=== PATIENT | female | born 1945 | race Caucasian/White ===

== ENCOUNTER 2016-08-06 01:39 | Inpatient (IN) ==
[2016-08-06] MEDS ORDERED: LOVENOX 1 MG/KG SUBQ ONE (04:50)
[2016-08-06 05:26] LABS: BASO% 0.2 % (0.0-0.8); HEMATOCRIT 30.7 % (37.0-47.0); HEMOGLOBIN 9.7 g/dL (12.0-16.0); LYMPH# 0.38 X1000 (1.2-3.4); LYMPH% 5.9 % (20.5-51.1); MANUAL DIFF NEEDED? NO; MCH 30.7 PG (27-31); MCHC 31.6 g/dL (33-37); MCV 97.2 FL (81-99); MONO# 0.24 X1000 (0.11-0.59); MONO% 3.8 % (1.7-9.3); MPV 9.1 FL (7.4-10.4); NEUT% 90.1 % (42.2-75.2); PLT 480 X1000 (130-400); RBC 3.16 XMIL (4.2-5.4)
[2016-08-06 05:41] LABS: AGAP 12; ALBUMIN 3.1 g/dL (3.5-5.0); ALKALINE PHOSPHATASE 81 U/L (32-104); BUN 17 mg/dL (8-22); CALCIUM 8.4 mg/dL (8.8-10.2); CHLORIDE 103 mmol/L (98-107); COSMO 281; GOT 11 U/L (10-30); GPT 12 U/L (10-36); POTASSIUM 4.1 mmol/L (3.5-5.1); SODIUM 139 mmol/L (136-145); TCO2 24 mmol/L (25-35); TOTAL BILIRUBIN 0.43 mg/dL (0.20-1.00); TOTAL PROTEIN 5.4 g/dL (6.3-8.3)
[2016-08-06] MEDS ORDERED: LOVENOX SUBQ ONE (05:45)
--- NOTE | 2016-08-06 07:00 | PROVIDER DOCUMENTATION ---
HPI-General Adult - General Chief Complaint: Generalized Pain Stated Complaint: ABD/NECK PAIN Time Seen by Provider: 08/06/16 04:46 Source: patient, family Allergies/Adverse Reactions: Patient Allergies Allergy/AdvReac Type Severity Reaction Status Date / Time No Known Allergies Allergy Verified 08/06/16 01:56 Home Medications: Home Medication List Medication Instructions Recorded Confirmed Last Taken Type Multivitamin [Multivitamins] 1 each PO DAILY 07/19/16 08/06/16 08/05/16 History Aspirin 325 mg PO BID 08/06/16 08/06/16 08/05/16 09:00 History Calcium Carbonate [Calcium] 1,000 mg PO BID 08/06/16 08/06/16 08/05/16 09:00 History Cholecalciferol (Vit D3) [Vitamin 1 tab PO DIRECTED 08/06/16 08/06/16 09:00 History D] Gabapentin [Neurontin] 100 mg PO TID 08/06/16 08/06/16 08/05/16 History Multivitamin [One-A-Day Essential] 1 tab PO BID 08/06/16 08/06/16 08/05/16 09: 00 History Oxycodone HCl [Oxycodone HCl] 5 mg PO Q4H PRN 08/06/16 08/06/16 08/05/16 History Sennosides/Docusate Sodium [Senna 1 tab PO DAILY 08/06/16 08/06/16 08/05/16 History Laxative Tablet] - History of Present Illness -Gen Adult Nature of Presenting Problems: Pt fell a few weeks ago and suffered right hip fracture at [place] . She did well until today when she developed generalized pain but more importantly suffered severe bilateral lower extremity . She has apparently not been on anticoagulant therapy since discharge. Location of Pain/Injury: reports: lower extremity Pain Radiation: reports: no radiation Quality of Pain: reports: none Onset/Duration: reports: gradual Timing: reports: getting worse Context/Activities at Onset: reports: other (see HPI) Modifying Factors: improves with: nothing Associated Symptoms: reports: fatigue, muscle aches, trouble walking Similar Symptoms Previously?: No Recently seen or treated by another doctor?: No Review of Systems - Adult - REVIEW OF SYSTEMS - ADULT Constitutional: reports: no symptoms reported Eyes: reports: no symptoms reported Ears, Nose, Mouth & Throat: reports: no symptoms reported Cardiovascular: reports: no symptoms reported Respiratory: reports: no symptoms reported Gastrointestinal: reports: abdominal pain Genitourinary: reports: no symptoms reported Musculoskeletal: reports: see HPI Integumentary: reports: no symptoms reported Neurological: reports: no symptoms reported Psychiatric: reports: no symptoms reported Endocrine: reports: no symptoms reported Hematologic/Lymphatic: reports: no symptoms reported Allergic/Immunologic: reports: no symptoms reported Past History - Adult - PAST MEDICAL HISTORY-ADULT Review of Records: reports: Old Records Reviewed, Nursing Assessment Review, Medications Reviewed Major Childhood Illnesses: reports: denies history Cardiovascular: reports: denies history Respiratory: reports: denies history Gastrointestinal: reports: denies history Obstetrical/Gynecological: reports: denies history Genitourinary: reports: denies history Musculoskeletal: reports: denies history Neurological: reports: denies history Endocrine/Immune: reports: denies history Other Conditions: reports: denies history - PRIOR SURGERIES/PROCEDURES Surgical/Procedure History: reports: other (right femur tumor removal) - IMMUNIZATION STATUS Childhood Immunizations: See Nurse Assessment Flu Vaccine: See Nurse Assessment - FAMILY HISTORY Family History: reviewed, not pertinent Physical Exam-General - PHYSICAL EXAM-ADULT Initial Vital Signs Reviewed: Yes - CONSTITUTIONAL General Appearance: appears well, alert - EYES Eyes: PERRL/EOMI, pink conjunctivae - HEAD, EARS, NOSE, MOUTH & THROAT HENMT: normocephalic/atraumatic, moist mucous membranes, normal ENT inspection - NECK Neck: non-tender, full range of motion, supple - RESPIRATORY Respiratory: chest non-tender, wheezing - CARDIOVASCULAR Cardiovascular: no gallop, no JVD. negative: no edema - GASTROINTESTINAL (ABDOMEN) Abdominal Exam: normal bowel sounds, non tender - LYMPHATIC Lymphatic: no adenopathy - MUSCULOSKELETAL Back Exam: normal inspection, no CVA tenderness, no vertebral tenderness Extremity: non-tender, no calf tenderness, pedal edema, swelling. negative: normal range of motion, normal gait, normal inspection, no pedal edema - SKIN Integumentary: normal color, normal turgor - NEUROLOGIC Neurologic: grossly normal - PSYCHIATRIC Psych/Mental Status: normal mood/affect Progress - PLAN OF CARE/RESULTS Progress/Plan/Lab Results: Vital Signs - 8 hr 08/06/16 01:47 08/06/16 06:27 Temperature 97.9 F 101.5 F H Pulse Rate 92 H 109 H Respiratory Rate 18 20 Blood Pressure 115/52 130/60 O2 Sat by Pulse Oximetry 100 96 Laboratory Results - last 24 hr 08/06/16 08/06/16 08/06/16 05:12 05:12 05:12 WBC 6.39 RBC 3.16 L Hgb 9.7 L Hct 30.7 L MCV 97.2 MCH 30.7 MCHC 31.6 L RDW Std Deviation 13.4 Plt Count 480 H MPV 9.1 Immature Gran % (Auto) 0.0 Neut % (Auto) 90.1 H Lymph % (Auto) 5.9 L Osborne % (Auto) 3.8 Eos % (Auto) 0.0 Baso % (Auto) 0.2 Immature Gran # (Auto) 0.00 Neut # (Auto) 5.76 Lymph # (Auto) 0.38 L Osborne # (Auto) 0.24 Eos # (Auto) 0.00 Baso # (Auto) 0.01 D-Dimer 3.27 H Sodium 139 Potassium 4.1 Chloride 103 Carbon Dioxide 24 L Anion Gap 12 BUN 17 Creatinine 0.6 Estimated GFR/1.73 m2 > 60 BUN/Creatinine Ratio 28 Glucose 137 H Calculated Osmolality 281 Calcium 8.4 L Total Bilirubin 0.43 AST 11 ALT 12 Alkaline Phosphatase 81 Total Protein 5.4 L Albumin 3.1 L Globulin 2.3 Albumin/Globulin Ratio 1.3 Orders Category Date Time Status CBC WITH ELECTRONIC DIFF [HEME] Stat Lab 08/06/16 05:12 Completed COMPREHENSIVE METABOLIC PANEL [CHEM] Stat Lab 08/06/16 05:12 Completed D-DIMER [CHEM] Stat Lab 08/06/16 05:12 Completed Enoxaparin [Lovenox] Med 08/06/16 05:45 Discontinued 90 mg SUBQ NOW ONE Venous U/S Bilateral Legs Routine Ther 08/06/16 04:48 Ordered Result Diagrams: 08/06/16 05:12 08/06/16 05:12 - REASSESSMENT Reassessment #1 Time Reassessed: 07:53 Status: other (I took over pt's care at 7:30AM from the weight shifter doc. Dr. Flores called reporting vascus perforation on the flat A+P. I went to pt's bed side to check on her. Pt is stable and using bathroom. Reports abd pain radiating to L chest and neck area since 7PM last night. Reports gastric bypass 6 years ago. R hip raplcement X 2 weeks ago. B/l LE US pending and she was given Lovenox SC at ER this morning by night shoft doc before the KUB done.) - CONSULTS/PCP/HOSPITALIST Notification #1 *Consult/PCP/Hospitalist*: Dr. Mariano Time Discussed: 08:06 Reason/Comments: Dr. Mariano will see pt at ER Consult Disposition: Will see in ED - CHANGE OF SHIFT REPORT (ED Provider) Report Given and Care Transferred to:: Dr Hurtado Items Pending: Ultrasound Results (suspect DVT - has not been on anticoagulant therapy) Departure - Departure Time of Disposition Decision: 08:06 DIAGNOSIS: Perforated viscus, Leg swelling, Post-operative complication Disposition: ADMITTED INPATIENT 09 Certified Medical Emergency: Emergent Condition: Stable Referrals and Follow-Ups: Vinicius Nicole MD [Primary Care Provider] - - Critical Care Note This patient required my direct & personal management of CC.: No
[2016-08-06] MEDS ORDERED: TYLENOL PO ONE (07:16)
[2016-08-06] MEDS ORDERED: ZOSYN 4.5 GM/NS 4.5 GM/100 ML IVPB IV ONE (07:52)
--- NOTE | 2016-08-06 07:52 | Diag Imaging Result Doc PS360 ---
EXAM: CHEST-2 VIEWS HISTORY: Fever COMPARISON: None. FINDINGS: There is free air beneath the diaphragm. The lungs are well expanded. The heart is not enlarged. Vessels are not distended. Granuloma found in the lower right lung. No pleural effusions. No infiltrates. IMPRESSION: Free air beneath the diaphragm. The findings were discussed with Rosa Hurtado MD at 08/06/2016 7:49 AM. Electronically signed by Khanh Flores 08/06/2016 7:50 AM
[2016-08-06 08:20] LABS: URINE CULTURE NEEDED? NO; URINE SOURCE CLEAN CATCH
[2016-08-06 08:32] LABS: BILIRUBIN URINE NEGATIVE (NEGATIVE); BLOOD URINE NEGATIVE (NEGATIVE); COLOR YELLOW; GLUCOSE URINE NEGATIVE (NEGATIVE); LEUKOCYTES URINE NEGATIVE (NEGATIVE); NITRITE URINE NEGATIVE (NEGATIVE); PH URINE 5.5; PROTEIN URINE 30 mg/dL (NEGATIVE); SP GRAVITY URINE 1.028; TURBIDITY URINE CLEAR (CLEAR); UROBILINOGEN URINE NORMAL (NORMAL)
[2016-08-06 08:33] LABS: URINE MICRO REVIEW NEEDED? YES
[2016-08-06 08:40] LABS: UR EPITHELIAL CELLS <10 /HPF (<10); URINE BACTERIA NEGATIVE /HPF; URINE RBC <10 /HPF (<10); URINE WBC <10 /HPF (<10)
[2016-08-06 08:45] LABS: URINE CASTS NONE SEEN; URINE CRYSTALS CA OXALATE PRESENT; URINE SMALL ROUND CELLS NONE SEEN
[2016-08-06 11:24] LABS: URINE MICRO REVIEW NEEDED? NO; URINE SOURCE CATH
[2016-08-06 11:32] LABS: BILIRUBIN URINE NEGATIVE (NEGATIVE); BLOOD URINE NEGATIVE (NEGATIVE); COLOR YELLOW; GLUCOSE URINE NEGATIVE (NEGATIVE); LEUKOCYTES URINE NEGATIVE (NEGATIVE); NITRITE URINE NEGATIVE (NEGATIVE); PH URINE 6.5; PROTEIN URINE TRACE mg/dL (NEGATIVE); TURBIDITY URINE CLEAR (CLEAR); UROBILINOGEN URINE NORMAL (NORMAL)
--- NOTE | 2016-08-06 11:32 | HISTORY AND PHYSICAL ---
CHIEF COMPLAINT: Abdominal pain. HISTORY OF PRESENT ILLNESS: A 71-year-old female who had a right hip fracture repair on 07/20/2016 at [place]. She has been home for the last 2 weeks and had been doing okay, walking around with her walker and participating in physical therapy. She has been complaining of some mild abdominal discomfort and nausea, especially since she has been taking 650 mg of aspirin twice a day since surgery to help with her hip pain. Last night she had acute severe worsening of mid- abdominal pain with associated shoulder, arm, and neck pain. This led to her presenting to the emergency room. Her pain is worse with movement. It is better with lying still. She does have a fever here in the emergency room. She denies any rectal bleeding or diarrhea. She has had no prior similar episodes like this. Further evaluation in the emergency room found her to have bilateral leg swelling. She underwent a venous Doppler this morning, and per the sound recording technician who I spoke with, there was no signs of deep vein thrombosis. In the interim though she did receive a dose of prophylactic Lovenox. She had a chest x-ray which revealed free air under the diaphragm. I was called to evaluate her. 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 PAST SURGICAL HISTORY: 1. Right hip fracture repair on 07/20/2016. 2. Laparoscopic gastric bypass 6 years ago in [place]. 3. Right malignant femur tumor excision. FAMILY HISTORY: Reviewed and noncontributory. SOCIAL HISTORY: Negative for tobacco, alcohol, or illicit drug use. CURRENT MEDICATIONS: She usually takes only vitamins; however, since her hip fracture repair she has been taking aspirin 325 mg, 2 tablets twice a day, Neurontin 100 mg p.o. t.i.d., oxycodone 5 mg p.o. q.4 hours p.r.n. pain, a stool softener and laxative, as well as calcium 1000 mg p.o. b.i.d., and Tylenol as needed for pain. REVIEW OF SYSTEMS: Ten systems reviewed and negative, except as noted above. PHYSICAL EXAMINATION: VITAL SIGNS: Temperature 101.5 degrees, pulse 109, respirations 20, blood pressure 130/60. GENERAL: She is a well-developed, well-nourished female in no distress, who looks her stated age. HEENT: Normocephalic, atraumatic. Extraocular muscles intact. Pupils equal, round, reactive to light. Sclerae anicteric. Moist mucous membranes. NECK: Supple. No thyromegaly. CARDIOVASCULAR: Regular rate and rhythm. RESPIRATORY: Bilateral equal breath sounds. No work of breathing. GASTROINTESTINAL: Soft, nondistended. Hypoactive bowel sounds. She is exquisitely tender in the left upper quadrant, more so than the left lower quadrant, with some guarding. MUSCULOSKELETAL: Her right hip incision is intact with some mild erythema. No drainage. She moves her extremities equally. EXTREMITIES: There is some mild to moderate bilateral lower extremity edema, varicose veins, and telangiectasias on both legs. No clubbing or cyanosis appreciated. SKIN: Warm and dry. No rash. IMAGING: Chest x-ray this morning showing free air under the diaphragm. Lower extremity venous Doppler study is pending, but a preliminary report is negative for deep venous thrombosis. LABORATORY: White blood cell count 6, hemoglobin 9.7, platelet count 480,000. Potassium 4.1. BUN 17, creatinine 0.6. ASSESSMENT/PLAN: A 71-year-old female with perforated viscus. The etiology is likely a perforated gastrojejunostomy ulcer versus duodenal ulcer versus diverticulitis. I have recommended her urgent exploratory laparotomy today with possible revision of her anastomosis versus a patch or suture repair or other indicated procedures based on our findings. We discussed the risks and benefits, including bleeding, ongoing infection, such as intra-abdominal abscess or wound infection, failure of the repair with ongoing leakage, injury to nearby organs, such as the intestines, incisional hernia and other imponderables. She understands and agrees to proceed. She has been given a dose of Zosyn. We will continue this postoperatively. cc: Charlie Radford MD
[2016-08-06 11:34] LABS: UR EPITHELIAL CELLS <10 /HPF (<10); URINE BACTERIA NEGATIVE /HPF; URINE RBC <10 /HPF (<10); URINE WBC <10 /HPF (<10)
--- NOTE | 2016-08-06 11:52 | EKG Report ---
Test Performed on : 08/06/2016 09:49:45 AM Test Reason : SURGERY Blood Pressure : / mmHG Vent. Rate : 103 BPM Atrial Rate : 103 BPM P-R Int : 160 ms QRS Dur : 090 ms QT Int : 352 ms P-R-T Axes : 062 010 037 degrees QTc Int : 461 ms Sinus tachycardia. Otherwise normal ECG No previous ECGs available Unconfirmed Result
[2016-08-06] MEDS ORDERED: ZOFRAN IV PRN ×2 (13:26→15:21)
[2016-08-06] MEDS ORDERED: OFIRMEV 1000 MG/ISOTONIC SOLN 1,000 MG/100 ML BOTTLE IV SCH (13:30)
[2016-08-06] MEDS ORDERED: FENTANYL ONE (13:40)
[2016-08-06] MEDS ORDERED: DIPRIVAN 1% ONE (13:40)
[2016-08-06] MEDS ORDERED: MORPHINE ONE (13:41)
[2016-08-06] MEDS ORDERED: LR 1,000 ML ONE (13:41)
[2016-08-06] MEDS ORDERED: ZOFRAN ONE (14:03)
[2016-08-06] MEDS ORDERED: NEOSTIGMINE ONE (14:03)
[2016-08-06] MEDS ORDERED: STERILE WATER INJ. ONE (14:03)
[2016-08-06] MEDS ORDERED: ANESTHESIA PB SET 88 IN 5742 ONE (14:03)
[2016-08-06] MEDS ORDERED: BLOOD SET Y-TYPE 8949 ONE (14:03)
[2016-08-06] MEDS ORDERED: LR 2,000 ML ONE (14:03)
[2016-08-06] MEDS ORDERED: NS 1,000 ML ONE (14:03)
[2016-08-06] MEDS ORDERED: NORCURON ONE (14:03)
[2016-08-06] MEDS ORDERED: EXTENSION SET 32 IN 4522 ONE (14:03)
[2016-08-06] MEDS ORDERED: ROBINUL ONE (14:03)
[2016-08-06] MEDS ORDERED: QUELICIN (DOSE) ONE (14:03)
[2016-08-06] MEDS ORDERED: NEO-SYNEPHRINE ONE (14:03)
[2016-08-06] MEDS ORDERED: OFIRMEV 1000 MG/ISOTONIC SOLN 1,000 MG/100 ML BOTTLE ONE (14:03)
[2016-08-06] MEDS ORDERED: XYLOCAINE-MPF 2% ONE (14:03)
[2016-08-06 14:12] LABS: HEMATOCRIT 33.9 % (37.0-47.0); HEMOGLOBIN 10.9 g/dL (12.0-16.0); MCH 30.4 PG (27-31); MCHC 32.2 g/dL (33-37); MCV 94.4 FL (81-99); MPV 9.4 FL (7.4-10.4); RBC 3.59 XMIL (4.2-5.4)
[2016-08-06 14:17] LABS: INR 1.26; PROTIME 13.4 Seconds (9.2-11.7)
[2016-08-06 14:26] LABS: AGAP 10; BUN 16 mg/dL (8-22); CALCIUM 7.5 mg/dL (8.8-10.2); CHLORIDE 101 mmol/L (98-107); COSMO 271; POTASSIUM 4.4 mmol/L (3.5-5.1); SODIUM 134 mmol/L (136-145); TCO2 23 mmol/L (25-35)
[2016-08-06] MEDS ORDERED: DILAUDID PCA VIAL ONE (15:18)
[2016-08-06] MEDS ORDERED: NARCAN IV PRN (15:21)
[2016-08-06] MEDS ORDERED: DILAUDID PCA VIAL IV PRN (15:21)
[2016-08-06] MEDS: OFIRMEV 1000 MG/ISOTONIC SOLN 1,000 MG/100 ML BOTTLE IV SCH (20:05)
[2016-08-06] MEDS: PROTONIX IV SCH (20:05)
[2016-08-06] MEDS: ZOSYN 3.375 GM/NS 3.375 GM/50 ML IVPB IV SCH (20:05)
[2016-08-06 21:03] LABS: HEMATOCRIT 27.3 % (37.0-47.0); HEMOGLOBIN 8.8 g/dL (12.0-16.0)
[2016-08-06] MEDS ORDERED: BLISTEX MEDICATED BERRY LIP BALM TOP PRN (22:23)
[2016-08-06] MEDS: LR 1,000 ML IV SCH ×2 (22:54→22:55)
[2016-08-07 01:58] LABS: HEMATOCRIT 25.5 % (37.0-47.0); HEMOGLOBIN 8.2 g/dL (12.0-16.0)
--- NOTE | 2016-08-07 02:26 | OPERATIVE NOTE ---
PROCEDURE DATE: 08/06/2016 PREOPERATIVE DIAGNOSIS: Perforated viscus. POSTOPERATIVE DIAGNOSIS: Perforated viscus. PROCEDURES PERFORMED: 1. Partial gastrectomy. 2. Small bowel resection. 3. Gastrojejunostomy. SURGEON: Charlie Radford MD ANESTHESIA: General. ESTIMATED BLOOD LOSS: 1300 mL. COMPLICATIONS: None apparent. SPECIMENS: Gastrojejunostomy anastomosis. FINDINGS: The patient had a large anterior perforation at the gastrojejunostomy anastomosis. There was a large amount of cloudy fluid contaminating the abdominal cavity. TECHNIQUE: The patient was brought to the operating room and placed supine on the table. A Monson catheter was placed after general anesthesia was induced. She was prepped and draped in the usual sterile fashion. An upper midline incision was made from the xiphoid to the umbilicus and carried down through the subcutaneous fat and fascia, first with a knife and then cautery. I entered the peritoneal cavity safely and immediately found cloudy ascites throughout the upper abdomen. This was suctioned out. There was inflammatory fibrinous exudate along the Deuce limb of the bowel which was also adherent to the left lobe of the liver. I inspected the right upper quadrant and, under the liver and over the liver, there were no signs of any disease here, specifically no duodenal ulcer. The ascending, transverse, and descending colon appeared normal. I found the jejunojejunostomy and there were no signs of any disease here. I ran the proximal limb back up to the ligament of Treitz that was normal. I ran the distal Capellan down to the terminal ileum and it was normal. There was an apparent mtje-hy-edth anastomosis here. The Deuce limb went proximally up to the gastric pouch. There was an apparent loop gastrojejunostomy. I began taking down the inflammatory rind of the Deuce limb. We took it off the liver with scissors and cautery. There was some bleeding from the liver edge. We controlled this first with cautery and then packed it off with a laparotomy pad. I placed a Bookwalter retractor for better visualization. Once I got the adhesions free from the liver, I then was able to clearly see a large anterior perforation of the anastomosis. I decided to go ahead and resect this. I divided the Deuce limb distally. Both limbs of the Deuce limb were divided with a NEW stapler. As it was a loop gastrojejunostomy, we divided both of these limbs. The mesentery was then taken down with the LigaSure device. I went up above the anastomosis and placed 2-0 silk retraction sutures on either side of the gastric pouch and then stapled the gastric pouch with a green load on a TA stapler and then divided the wound. I then finished resecting the anastomosis away from the stapler with a knife. It was passed off the field. I released the stapler. I then brought the new proximal Duece limb up to the stomach pouch and laid it in an upsidedown J configuration and proceeded to perform an end stomach to side jejunal handsewn anastomosis in 2 layers. It was on the posterior gastric wall of the stomach where this was performed. A row of 3-0 silk seromuscular sutures was placed. I then took down the staple line with cautery and scissors off the stomach and opened up the antimesenteric side of the small bowel with cautery. There was bleeding from the edges of the bowel. This was controlled some with cautery. Then, I proceeded to start the inner layer with a running locking 2-0 Vicryl posteriorly and bringing it around in a baseball stitch anteriorly. This provided good hemostasis. I then oversewed the anterior suture line with a second layer of 3-0 silk interrupted sutures. The anastomosis was felt to be patent. It was not under tension. There appeared to be good blood supply. We removed the retraction sutures. I copiously irrigated out all quadrants of the abdomen and suctioned this out. I brought in 2 #19 Tony drains through each side of her abdomen and laid them anterior and posterior to the anastomosis. The right-sided drain was placed posterior to the anastomosis. The left-sided drain was laid anterior to it. There continued to be a small amount of oozing from the liver bed. I placed Surgicel gauze over it. There was bleeding from multiple peritoneal sites and along the subcutaneous tissue. I think this was from her therapeutic dose of Lovenox which was given in the ER for concern of DVT at that time. I did not see any significant surgical bleeding. All in all, the estimated blood loss was determined to be about 1300 mL. We did transfuse 2 units of blood intraoperatively. We removed all the laparotomy packs and the Bookwalter retractor. Sponge counts were correct. The peritoneum was closed with a #1 Vicryl running suture. The fascia was closed with a running looped #1 Maxon suture. The skin was closed with skin clips. She was awakened in stable condition and transferred to the ICU. cc: Charlie Radford MD
[2016-08-07] MEDS: OFIRMEV 1000 MG/ISOTONIC SOLN 1,000 MG/100 ML BOTTLE IV SCH ×3 (03:44→15:09)
[2016-08-07] MEDS: ZOSYN 3.375 GM/NS 3.375 GM/50 ML IVPB IV SCH ×4 (03:44→21:00)
[2016-08-07 05:53] LABS: MANUAL DIFF NEEDED? NO
[2016-08-07 05:58] LABS: BASO% 0.2 % (0.0-0.8); HEMATOCRIT 24.3 % (37.0-47.0); HEMOGLOBIN 7.7 g/dL (12.0-16.0); IMM GRAN# 0.03 X1000 (0.0-0.04); IMM GRAN% 0.3 % (0.0-0.5); LYMPH# 1.15 X1000 (1.2-3.4); LYMPH% 10.1 % (20.5-51.1); MCH 29.7 PG (27-31); MCHC 31.7 g/dL (33-37); MCV 93.8 FL (81-99); MONO# 0.72 X1000 (0.11-0.59); MONO% 6.3 % (1.7-9.3); MPV 9.8 FL (7.4-10.4); NEUT% 83.1 % (42.2-75.2); PLT 405 X1000 (130-400); RBC 2.59 XMIL (4.2-5.4)
[2016-08-07 06:17] LABS: AGAP 10; BUN 24 mg/dL (8-22); CALCIUM 7.5 mg/dL (8.8-10.2); CHLORIDE 105 mmol/L (98-107); COSMO 285; POTASSIUM 4.7 mmol/L (3.5-5.1); SODIUM 140 mmol/L (136-145); TCO2 25 mmol/L (25-35)
[2016-08-07] MEDS: LR 1,000 ML IV SCH ×2 (06:55→14:50)
[2016-08-07] MEDS: PROTONIX IV SCH ×2 (08:23→21:07)
[2016-08-07 12:53] LABS: HEMOGLOBIN 7.2 g/dL (12.0-16.0)
--- NOTE | 2016-08-07 14:52 | PROGRESS NOTE ---
DATE: 08/07/2016 SUBJECTIVE: The patient feels sore but much better than she did preoperatively. She has had a few ice chips without difficulty. She has sat up at the side of the bed too today. OBJECTIVE: She is afebrile. Vital signs are stable. Pulse 87, blood pressure 129/78. O2 saturation 100%. Urine output about 30 mL/h. LIZZ drain 135 mL, 125 mL they are mostly bloody in appearance.General: She is alert and oriented x3. No acute distress. CV: Regular rate and rhythm. Respiratory: No work of breathing. Gastrointestinal: Soft, nondistended, hypoactive bowel sounds. Incision clean, dry, and intact. Extremities: She does have 2+ pitting edema in her legs and hands and arms. LABORATORY: White cell count 11,000, hemoglobin 7.2, hematocrit 23, platelet count 405,000, metabolic profile reviewed and unremarkable. ASSESSMENT/PLAN: A 71-year-old female status post repair of perforated ulcer and redo of the gastric gastrojejunostomy. She is hemodynamically stable. Her urine output is borderline low and her hemoglobin and hematocrit has drifted down throughout the night and morning. I am going to go ahead and give her a unit of blood followed by 20 mg of Lasix. We will consult physical therapy. I will let her have some ice chips tonight. If she is stable tomorrow I suspect we can start a clear liquid diet. Dr. Osei will round on her for me over the weekend. cc: Charlie Radford MD
[2016-08-07] MEDS ORDERED: LASIX IV ONE (15:30)
[2016-08-08] MEDS: LR 1,000 ML IV SCH ×4 (03:01→23:04)
[2016-08-08] MEDS: ZOSYN 3.375 GM/NS 3.375 GM/50 ML IVPB IV SCH ×4 (03:03→21:05)
[2016-08-08 04:46] LABS: HEMATOCRIT 19.7 % (37.0-47.0); HEMOGLOBIN 6.2 g/dL (12.0-16.0); MCH 29.1 PG (27-31); MCHC 31.5 g/dL (33-37); MCV 92.5 FL (81-99); MPV 9.2 FL (7.4-10.4); RBC 2.13 XMIL (4.2-5.4)
[2016-08-08 05:28] LABS: AGAP 17; BUN 18 mg/dL (8-22); CALCIUM 6.9 mg/dL (8.8-10.2); CHLORIDE 105 mmol/L (98-107); COSMO 288; POTASSIUM 3.8 mmol/L (3.5-5.1); SODIUM 144 mmol/L (136-145); TCO2 22 mmol/L (25-35)
[2016-08-08] MEDS ORDERED: NS 500 ML ONE (07:50)
[2016-08-08] MEDS: PROTONIX IV SCH ×2 (07:59→21:04)
[2016-08-08] MEDS ORDERED: LOVENOX SUBQ SCH (09:00)
--- NOTE | 2016-08-08 09:59 | PROGRESS NOTE ---
DATE: 08/08/2016 SUBJECTIVE: Ms. Tri Kern is postoperative day 2 from an open excision of a gastrojejunostomy ulcer per Dr. Radford. She has been hospitalized in our ICU. At the time of surgery, she lost 1300 mL of blood. She was given 2 units of blood during surgery. She was given 1 unit of blood yesterday, and her hematocrit today was 18% this morning. We have ordered 2 more units of packed red blood cells. OBJECTIVE: She is awake, cooperative, in the ICU. She is tachycardic with a heart rate of 95, but otherwise hemodynamically she is satisfactory. She has [address] The left-sided drain is draining serous fluid. The right-sided drain is serosanguineous fluid, and the output has picked up. This is not clotted blood being removed from the LIZZ drain. Her abdomen is otherwise soft, and there is no tenderness. PLAN: We will cut down her IV fluids. We will let her have ice chips, but otherwise keep her n.p.o. We will keep her in the ICU, transfuse blood, and watch her hematocrit. cc: MD Charlie Baum MD
[2016-08-09] MEDS: ZOSYN 3.375 GM/NS 3.375 GM/50 ML IVPB IV SCH ×4 (03:10→21:46)
[2016-08-09 04:02] LABS: MANUAL DIFF NEEDED? NO
[2016-08-09 04:14] LABS: BASO% 0.2 % (0.0-0.8); EOS# 0.19 X1000 (0.0-0.7); EOS% 1.6 % (0.0-10.0); HEMATOCRIT 26.5 % (37.0-47.0); HEMOGLOBIN 8.8 g/dL (12.0-16.0); IMM GRAN# 0.03 X1000 (0.0-0.04); IMM GRAN% 0.3 % (0.0-0.5); LYMPH% 8.6 % (20.5-51.1); MCH 29.6 PG (27-31); MCHC 33.2 g/dL (33-37); MCV 89.2 FL (81-99); MONO# 0.95 X1000 (0.11-0.59); MONO% 8.2 % (1.7-9.3); NEUT% 81.1 % (42.2-75.2); PLT 383 X1000 (130-400); RBC 2.97 XMIL (4.2-5.4)
[2016-08-09 04:24] LABS: AGAP 17; BUN 14 mg/dL (8-22); CALCIUM 7.4 mg/dL (8.8-10.2); CHLORIDE 104 mmol/L (98-107); COSMO 286; POTASSIUM 3.6 mmol/L (3.5-5.1); SODIUM 144 mmol/L (136-145); TCO2 23 mmol/L (25-35)
[2016-08-09] MEDS: SODIUM CHLORIDE 0.9% INJ SCH (08:25)
[2016-08-09] MEDS: PROTONIX IV SCH ×2 (08:26→21:47)
[2016-08-09] MEDS: LR 1,000 ML IV SCH (13:42)
[2016-08-09] MEDS: NORCO-7.5 PO PRN ×2 (13:45→22:48)
--- NOTE | 2016-08-09 13:58 | PROGRESS NOTE ---
DATE: 08/09/2016 SUBJECTIVE: Ms. Tri Kern is a 71-year-old white female who underwent a revision of her gastrojejunostomy because of a anastomotic ulcer perforation by Dr. Radford last . Her postoperative convalescence been complicated by some bleeding requiring 2 units of packed red blood cells yesterday. Her hematocrit this morning is 26%. She is still having some bloody drainage from 1 of her drains. The other drain is draining very little. Her upper midline incision is dressed. OBJECTIVE: She is awake, cooperative. Heart rate is 95, blood pressure is adequate. PLAN: Will stop her pain pump and will give her clear liquids. Will keep her in the ICU because of the need to watch her drain output and any evidence of bleeding. cc: MD Charlie Baum MD
[2016-08-10] MEDS: ZOSYN 3.375 GM/NS 3.375 GM/50 ML IVPB IV SCH ×4 (03:24→20:41)
[2016-08-10] MEDS: LR 1,000 ML IV SCH ×2 (03:28→11:52)
[2016-08-10 05:07] LABS: AGAP 17; BUN 8 mg/dL (8-22); CALCIUM 7.1 mg/dL (8.8-10.2); CHLORIDE 107 mmol/L (98-107); COSMO 295; POTASSIUM 3.6 mmol/L (3.5-5.1); SODIUM 149 mmol/L (136-145); TCO2 25 mmol/L (25-35)
[2016-08-10 07:12] LABS: MANUAL DIFF NEEDED? NO
[2016-08-10 07:17] LABS: BASO% 0.2 % (0.0-0.8); EOS# 0.39 X1000 (0.0-0.7); EOS% 4.2 % (0.0-10.0); HEMATOCRIT 28.5 % (37.0-47.0); HEMOGLOBIN 8.9 g/dL (12.0-16.0); IMM GRAN# 0.06 X1000 (0.0-0.04); IMM GRAN% 0.7 % (0.0-0.5); LYMPH# 1.35 X1000 (1.2-3.4); LYMPH% 14.7 % (20.5-51.1); MCH 28.3 PG (27-31); MCHC 31.2 g/dL (33-37); MCV 90.5 FL (81-99); MONO# 1.11 X1000 (0.11-0.59); MONO% 12.1 % (1.7-9.3); MPV 9.3 FL (7.4-10.4); NEUT% 68.1 % (42.2-75.2); PLT 392 X1000 (130-400); RBC 3.15 XMIL (4.2-5.4)
[2016-08-10] MEDS: SODIUM CHLORIDE 0.9% INJ SCH (08:37)
[2016-08-10] MEDS: PROTONIX IV SCH (08:37)
[2016-08-10] MEDS: NORCO-7.5 PO PRN ×2 (09:28→23:38)
[2016-08-10] MEDS: DIFLUCAN PO SCH (11:52)
--- NOTE | 2016-08-10 12:22 | PROGRESS NOTE ---
DATE: 08/10/2016 SUBJECTIVE: The patient says she is feeling good overall. No severe pain, nausea, or vomiting. She is having some bloody drainage around her right-sided drain, especially when she tries to get up and move around. She tolerated a clear liquid diet yesterday. OBJECTIVE: She is afebrile. Vital signs are stable. Her left sided LIZZ drain had 25 mL of serous output yesterday. Her right-sided LIZZ drain had 320 mL of bloody output. General: She is alert and oriented x4 in no acute distress. CV: Regular rate and rhythm. Respiratory: No work of breathing. GI soft, nondistended. Appropriately tender. Midline incision is clean, dry, and intact. LIZZ drain on the right is bloody, on the left is serous. LABORATORY: White blood cell count 9.2, hemoglobin 8.9, hematocrit 28.5, platelet count 392,000. Metabolic profile reviewed. ASSESSMENT AND PLAN: A 71-year-old female postop day 4, repair of perforated gastric ulcer. She has also had acute blood loss anemia requiring some transfusions. I think this is stabilizing. She has had no transfusions for over 24 hours, and her hemoglobin and hematocrit are stable. We will transfer her to a regular room, remove her Monson catheter, and advance her diet to full liquids. I will keep her on Zosyn for now and add Diflucan as her abdominal fluid culture grew out Viridans Streptococcus and Christa albicans. cc: Charlie Radford MD
--- NOTE | 2016-08-10 12:45 | Extremity Venous Study ---
PROCEDURE NAME: Venous U/S Bilateral Legs - 08/06/2016 BILATERAL LOWER EXTREMITY VENOUS DUPLEX STUDY: REFERRING PHYSICIAN: Dr. Rubio. READING PHYSICIAN: Charlie Radford MD. CAR LOADER: Francois. INDICATION: Elevated D-dimer and bilateral leg swelling after recent right hip fracture surgery. FINDINGS: The deep and superficial veins of both lower extremities were imaged throughout their course. All are compressible with forward flow. No thrombus is appreciated. INTERPRETATION: There is no evidence of deep or superficial venous thrombosis in either lower extremity. cc: Charlie Radford MD
[2016-08-10] MEDS ORDERED: MULTIVITAMIN PO SCH (22:22)
[2016-08-10] MEDS: NEURONTIN PO SCH (23:49)
[2016-08-10] MEDS: OSCAL 500 PO SCH (23:49)
[2016-08-11] MEDS: ZOSYN 3.375 GM/NS 3.375 GM/50 ML IVPB IV SCH ×4 (02:11→20:26)
[2016-08-11 06:33] LABS: HEMATOCRIT 28.8 % (37.0-47.0); HEMOGLOBIN 9.1 g/dL (12.0-16.0)
[2016-08-11] MEDS: PROTONIX PO SCH (07:30)
[2016-08-11] MEDS: THERA M PLUS PO SCH (08:56)
[2016-08-11] MEDS: NEURONTIN PO SCH ×3 (08:56→17:54)
[2016-08-11] MEDS: PERICOLACE PO SCH (08:56)
[2016-08-11] MEDS: DIFLUCAN PO SCH (08:56)
[2016-08-11] MEDS: OSCAL 500 PO SCH ×2 (08:58→20:26)
[2016-08-11] MEDS: NORCO-7.5 PO PRN ×2 (13:35→21:48)
--- NOTE | 2016-08-11 14:26 | PROGRESS NOTE ---
DATE: 08/11/2016 SUBJECTIVE: The patient says she does not feel too good today but she is tolerating a liquid diet without nausea and vomiting. She is sore but not in severe pain. She is ambulating around the room to the bathroom and back. OBJECTIVE: She is afebrile. Vital signs are stable. Her pulse is in the 80s. Blood pressure 130-140 systolic. LIZZ drain #1 with 290 mL of bloody output. #2 was 205 mL of bloody output. General: She is alert and oriented x4 in no acute distress. CV: Regular rate and rhythm. Respiratory: No work of breathing. Gastrointestinal: Soft, appropriately tender. Incision is clean, dry, and intact. Her drains have thin bloody fluid. It appears to be somewhat maroon colored. ASSESSMENT AND PLAN: A 71-year-old female with status post repair of perforated gastrojejunal ulcer. She had acute blood loss anemia. Her hemoglobin, hematocrit are stable over the last 48 hours. It was it was 9.1 and 28.8 respectively today. I think her drainage is a combination of old blood and irrigation fluid. I will add [place] Instant Breakfast and Boost. If she tolerates this, then we can start a soft diet in the next day or so. She needs to continue working with physical therapy as she is weak and deconditioned. cc: Charlie Radford MD
[2016-08-12] MEDS: ZOSYN 3.375 GM/NS 3.375 GM/50 ML IVPB IV SCH ×4 (05:09→22:47)
[2016-08-12 06:43] LABS: HEMATOCRIT 30.2 % (37.0-47.0); HEMOGLOBIN 9.5 g/dL (12.0-16.0)
[2016-08-12] MEDS: PROTONIX PO SCH (06:47)
[2016-08-12] MEDS: THERA M PLUS PO SCH (08:07)
[2016-08-12] MEDS: PERICOLACE PO SCH (08:07)
[2016-08-12] MEDS: OSCAL 500 PO SCH ×2 (08:07→21:35)
[2016-08-12] MEDS: NEURONTIN PO SCH ×3 (08:07→21:35)
[2016-08-12] MEDS: DIFLUCAN PO SCH (08:07)
--- NOTE | 2016-08-12 08:58 | PROGRESS NOTE ---
DATE: 08/12/2016 SUBJECTIVE: The patient says she feels good this morning. She rested well last night. She has no significant pain. No nausea, vomiting. She has tolerated soups and clear liquids. OBJECTIVE: Vital Signs: She is afebrile. Her pulse is in the 90s, blood pressure 138/73, O2 saturation 99%. General: She is alert and oriented x4. No acute distress. Cardiovascular: Regular rate and rhythm. Respiratory: No work of breathing. Gastrointestinal: Soft, nondistended. Appropriately tender. Incision is clean, dry, and intact. Her drains have serosanguineous output. #1 was recorded as 585 yesterday, #2 250. LABORATORY: Her hemoglobin is 9.5, hematocrit 30.2. 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 She appears to be making progress. We will add protein supplements today to her full liquids. I have encouraged her to continue working with Physical Therapy. If she tolerates these liquids today, will try soft diet tomorrow and I anticipate her being discharged within the next 48 hours. I think her drains are showing appropriate output given the large volume of ascites, blood, and irrigation at the time of surgery. cc: Charlie Radford MD
[2016-08-12] MEDS: NORCO-7.5 PO PRN ×2 (12:03→21:35)
[2016-08-13] MEDS: PROTONIX PO SCH ×2 (05:48→10:15)
[2016-08-13] MEDS: ZOSYN 3.375 GM/NS 3.375 GM/50 ML IVPB IV SCH ×4 (05:48→22:46)
[2016-08-13] MEDS: PERICOLACE PO SCH (10:14)
[2016-08-13] MEDS: OSCAL 500 PO SCH ×2 (10:14→22:46)
[2016-08-13] MEDS: DIFLUCAN PO SCH (10:15)
[2016-08-13] MEDS: THERA M PLUS PO SCH (10:15)
[2016-08-13] MEDS: NEURONTIN PO SCH ×3 (10:15→17:36)
[2016-08-14] MEDS: ZOSYN 3.375 GM/NS 3.375 GM/50 ML IVPB IV SCH ×2 (05:07→11:05)
[2016-08-14] MEDS: PROTONIX PO SCH (05:45)
[2016-08-14 08:06] VITALS: BP 139/73
[2016-08-14] MEDS: DIFLUCAN PO SCH (09:19)
[2016-08-14] MEDS: THERA M PLUS PO SCH (09:19)
[2016-08-14] MEDS: NEURONTIN PO SCH (09:19)
[2016-08-14] MEDS: PERICOLACE PO SCH (09:20)
[2016-08-14] MEDS: OSCAL 500 PO SCH (09:20)
--- NOTE | 2016-08-14 12:09 | PROGRESS NOTE ---
DATE: 08/14/2016 SUBJECTIVE: The patient is doing okay. She is tolerating her liquid diet and protein supplement. She has not had any significant or severe pain or nausea. She has not had a bowel movement yet. OBJECTIVE: Vital Signs: She is afebrile. Vital signs are stable. General: She is alert and oriented x4, in no acute distress. Gastrointestinal: Soft, nondistended, and appropriately tender. Incision clean, dry, and intact. Her LIZZ drain on the right side put out 210 mL. On the left side, 50. Both are serosanguineous. ASSESSMENT AND PLAN: A 71-year-old female status post repair of perforated marginal ulcer at the gastric bypass. She is making progress. I am going to advance her to a soft diet. Hopefully, she will have a bowel movement and we could get ready for discharge tomorrow. I plan on removing her drains tomorrow. We will continue her Zosyn and Diflucan through tomorrow for a total of 7 days of antibiotic coverage. cc: Charlie Radford MD
--- NOTE | 2016-08-14 12:10 | PROGRESS NOTE ---
DATE: 08/14/2016 SUBJECTIVE: The patient is doing well. She has had no nausea or vomiting. She has had a couple of bowel movements. She continues to tolerate a liquid diet. The soft diet apparently was not ordered. OBJECTIVE: Vital Signs: She is afebrile. Vital signs are stable. General: She is alert and oriented x4. No acute distress. GI: Soft, nondistended. Minimal tenderness. Her incision is clean, dry, and intact. The LIZZ drains have serosanguineous fluid; right side 120 mL and left side scant. I took out her drains today at the bedside. ASSESSMENT/PLAN: A 71-year-old female status post repair of perforated marginal ulcer from the gastric bypass. She is stable and ready for discharge. She will see me back in 1 week. She is to avoid heavy lifting. She may shower. She can eat a soft diet as tolerated. cc: Charlie Radford MD
== END 2016-08-14 15:18 | disposition home health service (06) ==
LOC: ED 01:39 → ICU 11:17 → 3N 08-10 21:53 → UNDODISIN 08-14 12:40
PROVIDERS: ADMIT Surgery; ATTEND Surgery